=== PATIENT | female | born 1975 | race Caucasian/White ===

== ENCOUNTER 2021-06-24 07:39 | Emergency (ER) | payer OTHER, SELFPAY ==
[2021-06-24] VITALS (35 sets, daily range): BP systolic 132–158; BP diastolic 75–94; PULSE 92–121; RESP 12–33; TEMP 36.4; O2SAT 96–100
--- NOTE | 2021-06-24 07:45 | RT.EKG_ITS ---
APPROVED REPORT Exam: Resting ECG Reason for Exam: rapid heart rate Patient Location: E HR:100 bpm ECG Measurements Heart Rate 100 AXIS NV 145 P 64 QRSd 127 QRS 3 QT 372 T 98 QTc 479 Conclusion Sinus tachycardia. Left bundle branch block.
--- NOTE | 2021-06-24 08:15 | DI.CT_ITS ---
Exam(s) CT CHEST PE CTA EXAM: CT CHEST PE CTA CLINICAL HISTORY: tachycardia, shortness of breath, hx dvt. TECHNIQUE: Imaging Protocol: CT angiography of the chest was performed using pulmonary embolus wilmer col. Multi planar reconstructions were performed. CONTRAST MATERIAL: Intravenous: Omnipaque 350 Contrast volume: 100 cc COMPARISON: No exams were available for comparison FINDINGS: CHEST: PULMONARY ARTERIES: There are no intraluminal filling defects to suggest acute pulmonary emboli. LUNGS: There increased dependent markings in both posterior lungs, slightly more so on the right and. No confluent infiltrates. No pleural effusions. No ominous pulmonary nodules. No significant foc al findings in the trachea and mainstem bronchi.. No pneumothorax MEDIASTINUM: Visualized thyroid unremarkable. However, there is a prominent abnormal mass in the ant erior mediastinal fat central/right of center,this noncalcified well-defined mass measuring 4.7 cm wi de by 3.2 cm AP by 6 cm craniocaudal. This is contiguous with the pericardium. There is no hilar ad enopathy. There is no subcarinal adenopathy. No axillary adenopathy. No supraclavicular adenopathy . CARDIAC: Heart size is upper normal. There is no pericardial effusion.Caliber of the thoracic aorta is within normal limits. No evidence of dissection. There is no significant shift of the interventri cular septum. PARTIALLY VISUALIZED UPPERMOST ABDOMEN: No obvious findings OSSEOUS: No significant osseous lesions.. IMPRESSION: 1. No evidence of acute pulmonary emboli. No evidence of pulmonary infarction.No pleural effusions. 2. There is a large well-defined noncalcified solid mass in the anterior mediastinal retrosternal fat measuring 4.7 cm wide by 3.2 cm AP x 6 cm craniocaudal. This solid neoplasm requires further invest igation. There is no hilar nor subcarinal adenopathy. No supraclavicular adenopathy. No axillary a denopathy. RADIATION DOSE DELIVERED: 395.67mGy.cm Total DLP DATA REPOSITORY: All CT scans at this facility are submitted to the National Radiology Data Registry (NRDR) Dose Index Registry (DIR) with the [employer] ([employer]). RADIATION OPTIMIZATION: All CT scans at this facility use at least one of these dose optimization te chniques: automated exposure control; mA and/or kV adjustment per patient size (includes targeted exa ms where dose is matched to clinical indication); or iterative reconstruction.
[2021-06-24 08:27] LABS: Abs Immature Grans 0.02 10^3/uL (0.0-0.06); Absolute Basophil Count 0.04 10^3/uL (0.0-0.2); Absolute Eosinophil Count 0.01 10^3/uL (0.0-0.7); Absolute Lymphocyte Count 0.56 10^3/uL (1.2-3.4); Absolute Monocyte Count 0.24 10^3/uL (0.1-0.8); Absolute Neutrophil Count 7.52 10^3/uL (1.2-6.7); Basophils % 0.5; Eosinophils % 0.1; HCT 40.3 % (36.0-46.0); HGB 13.2 g/dL (11.2-15.7); Immature Grans % 0.2; Lymphocytes % 6.7; MCH 29.5 pg (27.0-33.0); MCHC 32.8 % (32.0-36.0); Monocytes % 2.9; Neutrophils % 89.6; Nucleated RBC 0 %; Platelet Count 306 10^3/uL (130-400); RBC 4.48 10^6/uL (3.93-5.22); RDW 12.3 % (11.7-14.6); RDW-SD 40.3 fL; WBC 8.39 10^3/uL (4.4-10.8)
[2021-06-24 08:45] LABS: HCG Qual (Serum) Negative
[2021-06-24] MEDS: Omnipaque 350 MG/ML 100 ML BTL IJ (08:49)
[2021-06-24] MEDS: Normal Saline Flush 10 ML SYR IVP (08:50)
[2021-06-24 08:52] LABS: ALT 31 U/L (14-59); AST 21 U/L (15-37); Alkaline Phosphatase 71 U/L (46-116); Anion Gap 8.5 mmol/L (3-11); BUN 18 mg/dL (7-18); Bilirubin, Total 0.6 mg/dL (0.2-1.0); CO2 25.5 mmol/L (21.0-32.0); Calcium 8.7 mg/dL (8.5-10.1); Chloride 106 mmol/L (98-107); Estimated GFR 59.43 (mL/min/1.73m2); Glucose 133 mg/dL (74-106); NT-proBNP 52 pg/mL (<300); Potassium 4.3 mmol/L (3.5-5.1); Sodium 140 mmol/L (136-145); TSH (W/Ref FT4) 2.93 uIU/mL (0.36-3.74); Total Protein 7.5 g/dL (6.4-8.2); Troponin I < 50 ng/L (<or=60)
--- NOTE | 2021-06-24 09:18 | ED.GENADUL_ITS ---
Discharge Plan Disposition Patient Disposition: HOME Condition: Stable Discharge Details Clinical Impression: Heart palpitations, Tachycardia Primary Care Provider: Unknown,Unknown ED Provider: Damari Kaufman Home Meds and New Rx's Prescriptions: New metoprolol tartrate 25 mg tablet 25 mg PO BID Qty: 20 0RF Continued losartan 50 mg Tablet 50 mg PO QHS 0RF venlafaxine [Effexor XR] 150 mg Capsule,Extended Release 24hr 150 mg PO QHS 0RF Discharge Instructions Instructions: Heart Palpitations (ED) Additional Instructions: All your tests today are reassuring, I have spoken with the on-call heat treat inspector at [facility] and we will start you on 25 mg of metoprolol to be taken twice a day, if he cannot tolerate this medication you may discontinue the, however it will help your heart rate stay closer to normal range Please follow-up with your heat treat inspector and your PCP on Saturday You have what appears to be a benign mass in your chest, I do not suspect this is contributing to her symptoms but I recommend following up with your primary care physician for this likely incidental finding Have given you copy of your CT scan and your mom's been performed in the emergency department Please be reassessed should you have new or worsening complaints Discharge Data Discharge Date/Time-TO BE ENTERED AT DEPARTURE: 06/24/21 11:48 Medical Decision Making Diagnostic labs are reassuring, CAT scan shows a benign mediastinal mass that is an incidental finding, negative thyroid test, troponin, BNP and no evidence of pulmonary embolism on CTA Lower suspicion for cardiac etiology as patient does not have any chest pain She is tachycardic and this is a normal sinus rhythm Her EKG shows evidence of bundle branch block, left, this is not a new finding patient confirms that she has a history of a known left bundle branch block disease cardiology at [facility] for this finding in addition to palpitations Patient is taking losartan and Effexor, these are not new medications for the patient There is no sign or symptom of serotonin syndrome I did discuss the case with Dr. Ward, heat treat inspector on-call at [facility] where patient has cardiology follow-up She is to call the office on Saturday for reassessment with Dr. Azul, her heat treat inspector I did consider Holter monitor however patient does not reside in the area and is actually headed back to [place] this evening She was also prescribed metoprolol 25 mg twice daily in an effort to alleviate her palpitation symptoms Her blood pressures been stable throughout this encounter She will continue to check at home She is given a single dose in the emergency department and prescription for more should she choose to take Return precautions discussed and patient expressed understanding She is aware she will need to follow-up regarding the mediastinal mass with her PCP Medical Records Medical records reviewed: Yes I reviewed the patient's medical records. Lab Data Lab results reviewed: Yes I reviewed the patient's lab results. HPI General Date/Time Provider Initiated Documentation: 06/24/21 07:40 . HPI Narrative: This 46-year-old female presents with report of sensation of chest fullness and tachycardia with any exertion. She denies any fever or chills. She denies any current chest pain or shortness of breath. She does note palpitations. She denies prior history of similar symptoms in the past. She does have history of DVT and hypertension. She has been on anticoagulant for approximately 3 years. Her last DVT with septated past surgically. She denies chance of . She denies tobacco abuse. She denies coronary artery disease 59 and apparent personal history of coronary artery disease. She does not tobacco or drink alcohol. She denies history of hyperlipidemia. Related Data Home Medications Medication Instructions Recorded Confirmed losartan 50 mg tablet 50 mg PO QHS 06/24/21 06/24/21 metoprolol tartrate 25 mg tablet 25 mg PO BID #20 tab 06/24/21 venlafaxine 150 mg 150 mg PO QHS 06/24/21 06/24/21 capsule,extended release 24 hr (Effexor XR) Previous Rx's Medication Instructions Recorded metoprolol tartrate 25 mg tablet 25 mg PO BID #20 tab 06/24/21 Allergies Allergy/AdvReac Type Severity Reaction Status Date / Time No Known Allergies Allergy Unverified 06/24/21 07:56 General Stated Complaint: Palpitatns JUVE: 3 Review of Systems All systems reviewed & are unremarkable except as noted in HPI and below PFSH All Active Problems (Updated 06/24/21 @ 10:53 by OPAL Rogers) Heart palpitations (Acute) Tachycardia (Acute) Social History Smoking/Tobacco Use Status: Never Smoking risk assessment performed?: Yes Alcohol Intake: current Alcohol Intake frequency: holidays/special occasions only Drug use: Never Substance use type: does not use Do you feel safe at home: Yes Do you feel safe in your relationship?: Yes Exam Const General: cooperative, comfortable and no acute distress HENMT Head: normal to inspection Mouth: oral mucosae normal Eyes Pupils: PERRL Resp Effort & Inspection: normal respiratory effort Auscultation: clear to auscultation bilaterally Cardio Rate: tachycardic Rhythm: regular rhythm GI Inspection: normal to inspection Other: Nontender abdominal Skin General skin exam: no rashes or lesions noted Neuro General: patient alert and patient oriented x3 Cranial Nerves: CN's II-XI intact bilaterally Extrem Other: Distal pulses intact, no calf swelling or tenderness Course Vital Signs Vital signs: Vital Signs Pulse 108 H 06/24/21 07:48 Respiratory Rate 23 06/24/21 07:48 Blood Pressure 157/94 H 06/24/21 07:48 Pulse Oximetry 98 06/24/21 07:48 Pulse 101 H 06/24/21 09:09 Pulse 110 H 06/24/21 09:10 Respiratory Rate 16 06/24/21 09:10 Respiratory Effort Non-Labored 06/24/21 07:59 Blood Pressure 137/80 06/24/21 09:09 Blood Pressure Mean 94 06/24/21 09:09 Blood Pressure Position Sitting 06/24/21 07:53 Pulse Oximetry 100 06/24/21 09:10 Oxygen Delivery Method Room Air 06/24/21 07:53 Oxygen Flow Rate 0 06/24/21 07:53 Lab/Test Results Lab/Test Results: Laboratory Tests Range/Units 06/24/21 06/24/21 06/24/21 08:00 08:00 08:00 WBC (4.4-10.8) 10^3/uL 8.39 RBC (3.93-5.22) 10^6/uL 4.48 Hgb (11.2-15.7) g/dL 13.2 Hct (36.0-46.0) % 40.3 MCV (80-95) fL 90.0 MCH (27.0-33.0) pg 29.5 MCHC (32.0-36.0) % 32.8 RDW (11.7-14.6) % 12.3 Plt Count (130-400) 10^3/uL 306 MPV (8.0-11.0) fL 9.0 Immature Gran % 0.2 Neutrophils % 89.6 Lymphocytes % 6.7 Monocytes % 2.9 Eosinophils % 0.1 Basophils % 0.5 Nucleated RBC % % 0 Absolute Neutrophils (1.2-6.7) 10^3/uL 7.52 H Absolute Lymphocytes (1.2-3.4) 10^3/uL 0.56 L Absolute Monocytes (0.1-0.8) 10^3/uL 0.24 Absolute Eosinophils (0.0-0.7) 10^3/uL 0.01 Absolute Basophils (0.0-0.2) 10^3/uL 0.04 Sodium (136-145) mmol/L 140 Potassium (3.5-5.1) mmol/L 4.3 Chloride (98-107) mmol/L 106 Carbon Dioxide (21.0-32.0) mmol/L 25.5 Anion Gap (3-11) mmol/L 8.5 BUN (7-18) mg/dL 18 Creatinine (0.55-1.02) mg/dL 1.0 Estimated GFR/1.73 m2 (mL/min/1.73m2) 59.43 Glucose (74-106) mg/dL 133 H Calcium (8.5-10.1) mg/dL 8.7 Total Bilirubin (0.2-1.0) mg/dL 0.6 AST (15-37) U/L 21 ALT (14-59) U/L 31 Alkaline Phosphatase (46-116) U/L 71 Troponin I (<or=60) ng/L < 50 NT-Pro-B Natriuret Pep (<300) pg/mL 52 Total Protein (6.4-8.2) g/dL 7.5 Albumin (3.4-5.0) g/dL 4.0 TSH (0.36-3.74) uIU/mL 2.93 Serum HCG, Qual Negative POC- Test(urine) Negative
[2021-06-24] MEDS: Normal Saline 500 ML IV (09:22)
--- NOTE | 2021-06-24 09:33 | DI.VRAD_ITS ---
PROCEDURE INFORMATION: Exam: CTA Chest With Contrast Exam date and time: 06/24/2021 8:20 AM Age: 46 years old Clinical indication: Shortness of breath and other: Tachycardia; Patient HX: HX of dvt TECHNIQUE: Imaging protocol: Computed tomographic angiography of the chest with contrast. 3D rendering (Not supervised by radiologist): MIP and/or 3D reconstructed images were created by the technologist. Radiation optimization: All CT scans at this facility use at least one of these dose optimization techniques: automated exposure control; mA and/or kV adjustment per patient size (includes targeted exams where dose is matched to clinical indication); or iterative reconstruction. Contrast material: OMNIPAQUE 350; Contrast volume: 100 ml; Contrast route: INTRAVENOUS (IV); COMPARISON: No relevant prior studies available. FINDINGS: Pulmonary arteries: Normal. No pulmonary emboli. Aorta: Thoracic aorta is normal in caliber and appearance. Thyroid: Thyroid gland is unremarkable. Lungs: Unremarkable. No consolidation. No masses. Pleural spaces: Unremarkable. No pneumothorax. No pleural effusion. Heart: Heart size is normal. No pericardial effusion. Mild coronary artery calcifications. Mediastinal space: Lobular anterior mediastinal mass measuring 4.6 x 2.4 x 7 cm. Lymph nodes: Unremarkable. No enlarged lymph nodes. Bones/joints: Unremarkable. No acute fracture. Soft tissues: Unremarkable. IMPRESSION: 1. No evidence of pulmonary embolism. 2. No acute abnormality of the thoracic aorta. 3. 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 Dictated and Authenticated by: Janiya Rich MD. Ordering:OZZIE Wetzel MD
[2021-06-24] MEDS: Metoprolol 25 MG TAB PO (10:22)
== END 2021-06-24 11:48 | disposition home or self-care (01) ==
PROVIDERS: Emergency Provider Physician Assistant
DX: R00.2 Palpitations (principal); R00.0 Tachycardia, unspecified; J98.59 Other diseases of mediastinum, not elsewhere classified; R07.89 Other chest pain; Z79.01 Long term (current) use of anticoagulants
CPT/HCPCS: 36415; 71275; 80053; 81025; 93005; 96360; 99285; 83880; 84443; 84484; 84703; 85025; 93010; 99284; J3490